=== PATIENT | male | born 1995 | race Caucasian/White ===

== ENCOUNTER 2019-12-12 11:03 | Emergency (ER) | payer BC ==
--- NOTE | 2019-12-12 11:14 | EDM.PDOC ---
ED HPI GENERAL MEDICAL PROBLEM - General Chief Complaint: General Stated Complaint: dizzy Time Seen by Provider: 12/12/19 11:09 Source of Information: Reports: Patient History Limitations: Reports: No Limitations - History of Present Illness INITIAL COMMENTS - FREE TEXT/NARRATIVE: This patient is a 24 year old male that presents to the clinic. I saw him in clinic, then moved him to the ER once I obtained an abnormal EKG. The patient reports that he had a knee scope done in September. He reports that since early November, so about a month having lightheadedness. He reports that he went for check of his knee, told at the orthopedic office his BP was elevated. Patient reports he was told by Ortho to fu with pcp about BP. Patient reports that the lightheadedness has been near constant the entire month. Patient reports that nothing makes it better or worse. Patient reports hat on occasion he will have a headache. Patient reports that today he does not have a headache. Patient reports that he came to the clinic today because he was off work. Patient reports that the lightheadedness is not any worse. He denies having any chest pain or shortness of breath. Patient denies any other symptoms. Patient is ambulatory without difficulty. Denies any unilateral weaknesses, difficulty with speech or balance. Onset Date: 11/13/19 Duration: Other (1 month ago) Severity: Moderate Improves with: Reports: None Worsens with: Reports: None Associated Symptoms: Reports: Headaches. Denies: Confusion, Chest Pain, Cough, cough w sputum, Diaphoresis, Fever/Chills, Loss of Appetite, Malaise, Nausea/ Vomiting, Rash, Seizure, Shortness of Breath, Syncope, Weakness - Related Data Allergies Allergy/AdvReac Type Severity Reaction Status Date / Time morphine Allergy Anaphylactic Verified 12/12/19 11:04 Shock Home Meds: Home Meds . [No Known Home Meds] 06/09/14 [History] Past Medical History - Past Health History Medical/Surgical History: Denies Medical/Surgical History Other Endocrine/Metabolic History: hypoglycemic ED ROS GENERAL - Review of Systems Review Of Systems: See Below Constitutional: Reports: No Symptoms HEENT: Reports: No Symptoms Respiratory: Reports: No Symptoms Cardiovascular: Reports: Blood Pressure Problem, Lightheadedness. Denies: Chest Pain, Dyspnea on Exertion, Edema, Palpitations, Syncope Endocrine: Reports: No Symptoms GI/Abdominal: Reports: No Symptoms. Denies: Abdominal Pain, Nausea, Vomiting : Reports: No Symptoms Musculoskeletal: Reports: No Symptoms. Denies: Neck Pain Skin: Reports: No Symptoms Neurological: Reports: Headache. Denies: Numbness, Seizure, Syncope, Tingling, Tremors, Trouble Speaking, Difficulty Walking, Weakness, Change in Speech, Gait Disturbance Psychiatric: Reports: No Symptoms Hematologic/Lymphatic: Reports: No Symptoms Immunologic: Reports: No Symptoms ED EXAM, GENERAL - Physical Exam Exam: See Below Exam Limited By: No Limitations General Appearance: Alert, WD/WN, No Apparent Distress Eye Exam: Bilateral Eye: EOMI, PERRL Ears: Normal External Exam, Normal Canal, Hearing Grossly Normal, Normal TMs Ear Exam: Bilateral Ear: Auricle Normal, Canal Normal, TM normal Nose: Normal Inspection, Normal Mucosa, No Blood Throat/Mouth: Normal Inspection, Normal Lips, Normal Teeth, Normal Gums, Normal Oropharynx, Normal Voice, No Airway Compromise Head: Atraumatic, Normocephalic Neck: Normal Inspection, Supple, Non-Tender, Full Range of Motion Respiratory/Chest: No Respiratory Distress, Lungs Clear, Normal Breath Sounds, No Accessory Muscle Use, Chest Non-Tender Cardiovascular: Normal Peripheral Pulses, Regular Rate, Rhythm, No Edema, No Gallop, No JVD, No Murmur, No Rub Peripheral Pulses: 2+: Carotid (L), Carotid (R), Radial (L), Radial (R), Posterior Tibial (L), Posterior Tibial (R) GI/Abdominal: Normal Bowel Sounds, Soft, Non-Tender, No Organomegaly, No Abnormal Bruit Back Exam: Normal Inspection, Full Range of Motion Extremities: Normal Inspection, Normal Range of Motion, Non-Tender, No Pedal Edema, Normal Capillary Refill Neurological: Alert, Oriented, CN II-XII Intact, Normal Cognition, Normal Gait, No Motor/Sensory Deficits Psychiatric: Normal Affect, Normal Mood Skin Exam: Warm, Dry, Intact, Normal Color, No Rash Lymphatic: No Adenopathy EKG INTERPRETATION EKG Date: 12/12/19 Time: 10:35 Rate (Beats/Min): 78 ST-T: Elevated Comparison: NA - No Prior EKG EKG Interpretation Comments: T wave inversion Course - Vital Signs Last Recorded V/S: Last Vital Signs Temp 98.2 F 03/07/20 11:15 Pulse 91 12/12/19 11:17 Resp 18 12/12/19 11:15 BP 146/95 H 12/12/19 11:17 Pulse Ox 98 12/12/19 11:15 - Radiology Interpretation Free Text/Narrative:: CXR: No cardiomegaly, no pulmonary edema, no infiltrates. - Re-Assessments/Exams Free Text/Narrative Re-Assessment/Exam: 12/12/19 11:10 I called and spoke to Vianney valenzuela. He reports that the EKG does appear abnormal with T Wave inversion and some ST Elevation in lead 2. He reports I should discuss the patient with cardiology and let them view the EKG. 12/12/19 11:20 I called and spoke to Php Software Engineer Abdiaziz Hughes. He has received the EKG and reviewed. We discussed the patient case. We discussed patient medication history, family medical history, and current symptoms, and EKG, and labs. The patient has NO Chest Pain. No Shortness of breath. No unilateral weaknesses. Dr. Hughes reports to discharge the patient home since he has no chest pain. Reports he needs to see cardiology out patient and have an echo done. I educated this to the patient. He again denies any chest pain. No symptom changes today. I scheduled the patient an echo on Saturday, PCP FU and the phone number to call cardiology. I educated patient when to return to the ER. He understands and verbalizes back the patient is to return to the ER for any worsening of lightheaded. If CP starts or shortness of breath, weaknesses, or any other concerns at all. Departure - Departure Time of Disposition: 11:31 Disposition: Home, Self-Care 01 Condition: Fair Clinical Impression: Lightheadedness, Abnormal electrocardiogram [ECG] [EKG] - Discharge Information *PRESCRIPTION DRUG MONITORING PROGRAM REVIEWED*: Not Applicable *COPY OF PRESCRIPTION DRUG MONITORING REPORT IN PATIENT RACHELLE: Not Applicable Instructions: Electrocardiogram, [id number], Dizziness, [id number] Forms: ED Department Discharge Additional Instructions: Echo SaturdayDecember 14 at 9am: Be here at [facility], [facility] Followup with primary care provider December 2:30PM with Jj Humphries at [facility] Followup with a grocery buyer [phone] Call Saturday for appointment PLEASE RETURN TO THE ER EMERGENTLY IF YOU DEVELOP CHEST PAIN, SHORTNESS OF BREATH, WORSENING OF LIGHTHEADEDNESS, OR ANY OTHER CONCERNS AT ALL Sepsis Event Note - Focused Exam Vital Signs: Vital Signs Temp Pulse Resp BP Pulse Ox 12/12/19 11:17 91 146/95 H 12/12/19 11:15 98.2 F 90 18 154/104 H 98 Date Exam was Performed: 12/12/19 Time Exam was Performed: 12:03 - Assessment/Plan Plan: PLEASE SEE RN NOTE FOR PFSH.
[2019-12-12 11:17] VITALS: BP 146/95; PULSE 91
== END 2019-12-12 11:40 | disposition home or self-care (01) ==
LOC: CC.ED 11:03
DX: R94.31 Abnormal electrocardiogram [ECG] [EKG] (principal); R42 Dizziness and giddiness; Z88.5 Allergy status to narcotic agent
CPT/HCPCS: 99283

== ENCOUNTER 2021-03-02 18:59 | Emergency (ER) | payer BC ==
[2021-03-02 19:02] VITALS: BP 149/93; PULSE 112
--- NOTE | 2021-03-02 19:29 | EDM.PDOC ---
ED HPI GENERAL MEDICAL PROBLEM - General Chief Complaint: General Stated Complaint: "coughing up blood" Time Seen by Provider: 03/02/21 19:19 Source of Information: Reports: Patient, RN History Limitations: Reports: No Limitations - History of Present Illness INITIAL COMMENTS - FREE TEXT/NARRATIVE: States that he has been coughing up blood today. Yesterday and earlier today it was pink in mucus and he states that now it is more bloody. He has sore throat on the right side. He denies any SOB. Coughing occasionally. No fever noted. Onset: Gradual Throat Pain Score (Numeric/FACES): 2 - Related Data Allergies Allergy/AdvReac Type Severity Reaction Status Date / Time morphine Allergy Anaphylactic Verified 03/02/21 19:02 Shock Home Meds: Home Meds PARoxetine HCL [Paroxetine HCl] 30 mg PO DAILY 03/02/21 [History] Temazepam 7.5 mg PO BEDTIME PRN 03/02/21 [History] Past Medical History - Past Health History Medical/Surgical History: Denies Medical/Surgical History HEENT History: Reports: Other (See Below) Other HEENT History: cleft palate/lip repair Other Endocrine/Metabolic History: hypoglycemic - Past Surgical History HEENT Surgical History: Reports: Eye Surgery Musculoskeletal Surgical History: Reports: Arthroscopic Knee, Other (See Below) Other Musculoskeletal Surgeries/Procedures:: ACL repair Social & Family History - Family History Family Medical History: No Pertinent Family History - Tobacco Use Tobacco Use Status *Q: Current Every Day Tobacco User Years of Tobacco use: 1 Packs/Tins Daily: 0 - Caffeine Use Caffeine Use: Reports: Coffee, Soda - Recreational Drug Use Recreational Drug Use: No ED ROS GENERAL - Review of Systems Review Of Systems: See Below Constitutional: Denies: Fever, Chills, Weight Loss HEENT: Reports: Throat Pain Respiratory: Reports: Cough, Hemoptysis. Denies: Shortness of Breath Cardiovascular: Reports: No Symptoms GI/Abdominal: Reports: No Symptoms Musculoskeletal: Reports: No Symptoms Skin: Reports: No Symptoms Neurological: Reports: No Symptoms ED EXAM, GENERAL - Physical Exam Exam: See Below Exam Limited By: No Limitations General Appearance: Alert, WD/WN, No Apparent Distress Ears: Normal External Exam, Normal Canal, Normal TMs Nose: Normal Inspection Throat/Mouth: Normal Inspection, Other (mild redness noted posteriorly) Head: Atraumatic, Normocephalic Neck: Normal Inspection, Full Range of Motion, Lymphadenopathy (R) Respiratory/Chest: No Respiratory Distress, Lungs Clear, Normal Breath Sounds Cardiovascular: Regular Rate, Rhythm GI/Abdominal: Normal Bowel Sounds, Soft, Non-Tender Neurological: Alert, Oriented Skin Exam: Warm, Dry, Intact Course - Vital Signs Last Recorded V/S: Last Vital Signs Temp 98.6 F 03/02/21 18:59 Pulse 112 H 03/02/21 18:59 Resp 18 03/02/21 18:59 BP 149/93 H 03/02/21 18:59 Pulse Ox 97 03/02/21 18:59 - Orders/Labs/Meds Orders: Active Orders 24 hr Category Date Time Status Chest 2V [CR] Stat Exams 03/02/21 19:09 Ordered BASIC METABOLIC PANEL,BMP [CHEM] Stat Lab 03/02/21 19:09 Ordered C-REACTIVE PROTEIN [CHEM] Stat Lab 03/02/21 19:09 Ordered CBC WITH AUTO DIFF [HEME] Stat Lab 03/02/21 19:09 Ordered CORONAVIRUS COVID-19 RAPID [MOLEC] Stat Lab 03/02/21 19:09 Ordered STREP SCRN A RAPID W CULT CONF [RM] Stat Lab 03/02/21 19:09 Ordered - Re-Assessments/Exams Free Text/Narrative Re-Assessment/Exam: 03/02/21 19:48 discussed normal labs and CXR. Sputum that he is coughing up in the ER is clear at this time without any blood. I suspect that he broke a blood vessel in the back of his throat from coughing and it has not stopped. Departure - Departure Time of Disposition: 19:47 Disposition: Home, Self-Care 01 Condition: Good Clinical Impression: Cough - Discharge Information *PRESCRIPTION DRUG MONITORING PROGRAM REVIEWED*: Not Applicable *COPY OF PRESCRIPTION DRUG MONITORING REPORT IN PATIENT RACHELLE: Not Applicable Forms: ED Department Discharge Additional Instructions: push fluids as much as possible recheck in the clinic for any new concerns. Sepsis Event Note (ED) - Evaluation Sepsis Screening Result: No Definite Risk - Focused Exam Vital Signs: Vital Signs Temp Pulse Resp BP Pulse Ox 03/02/21 18:59 98.6 F 112 H 18 149/93 H 97 - Problem List & Annotations (1) Cough SNOMED Code(s): 90121584 Code(s): R05 - COUGH Status: Acute Priority: High Current Visit: Yes - Problem List Review Problem List Initiated/Reviewed/Updated: Yes - My Orders Last 24 Hours: My Active Orders 03/02/21 19:09 Chest 2V [CR] Stat BASIC METABOLIC PANEL,BMP [CHEM] Stat C-REACTIVE PROTEIN [CHEM] Stat CBC WITH AUTO DIFF [HEME] Stat CORONAVIRUS COVID-19 RAPID [MOLEC] Stat STREP SCRN A RAPID W CULT CONF [RM] Stat - Assessment/Plan Last 24 Hours: My Active Orders 03/02/21 19:09 Chest 2V [CR] Stat BASIC METABOLIC PANEL,BMP [CHEM] Stat C-REACTIVE PROTEIN [CHEM] Stat CBC WITH AUTO DIFF [HEME] Stat CORONAVIRUS COVID-19 RAPID [MOLEC] Stat STREP SCRN A RAPID W CULT CONF [RM] Stat
[2021-03-02 19:36] LABS: CHLORIDE,CL 104 mEq/L (98-106); SODIUM,NA 142 mEq/L (136-145)
== END 2021-03-02 19:53 | disposition home or self-care (01) ==
LOC: CC.ED 18:59
DX: R05 Cough (principal); Z88.6 Allergy status to analgesic agent; Z72.0 Tobacco use; Z20.822 Contact with and (suspected) exposure to COVID-19
CPT/HCPCS: 36415; 71046; 80048; 85025; 86140; 87430; 99283-25; U0002

== ENCOUNTER 2021-04-22 21:54 | Emergency (ER) | payer BC ==
[2021-04-22 21:59] VITALS: BP 132/89; PULSE 97
[2021-04-22] MEDS ORDERED: Ketorolac 10 MG Tab ONE (22:42)
--- NOTE | 2021-04-22 22:42 | EDM.PDOC ---
ED HPI GENERAL MEDICAL PROBLEM - General Chief Complaint: General Stated Complaint: R) shoulder pain Time Seen by Provider: 04/22/21 22:30 Source of Information: Reports: Patient History Limitations: Reports: No Limitations - History of Present Illness INITIAL COMMENTS - FREE TEXT/NARRATIVE: Alethea is a 25 year old male who presents to ER with complaints of right shoulder pain. Patient was going down in to the basement and the stairs are loose and broke. He hyperextended his shoulder and arm banged up against the wall. Did not fall on his shoulder but feels he may have grabbed out to keep him from falling. Now has pain to his shoulder with any movement. Onset: Today, Sudden Duration: Hour(s):, Constant Location: Reports: Upper Extremity, Right Quality: Reports: Ache, Throbbing Severity: Severe Improves with: Reports: Rest Worsens with: Reports: Movement Context: Reports: Trauma Associated Symptoms: Reports: No Other Symptoms Right Shoulder Pain Score (Numeric/FACES): 7 - Related Data Allergies Allergy/AdvReac Type Severity Reaction Status Date / Time morphine Allergy Anaphylactic Verified 04/22/21 22:01 Shock Home Meds: Home Meds PARoxetine HCL [Paroxetine HCl] 30 mg PO DAILY 03/02/21 [History] Temazepam 7.5 mg PO BEDTIME PRN 03/02/21 [History] Cyanocobalamin (Vitamin B12) [Vitamin B12] 1 tab PO DAILY 04/22/21 [History] Multivit-Min/Folic/Vit K/Lycop [Men's Multivitamin Tablet] 1 tab PO DAILY 04/22/21 [History] Past Medical History - Past Health History Medical/Surgical History: Denies Medical/Surgical History HEENT History: Reports: Other (See Below) Other HEENT History: cleft palate/lip repair Psychiatric History: Reports: Depression Other Endocrine/Metabolic History: hypoglycemic - Past Surgical History HEENT Surgical History: Reports: Eye Surgery Musculoskeletal Surgical History: Reports: Arthroscopic Knee, Other (See Below) Other Musculoskeletal Surgeries/Procedures:: ACL repair Social & Family History - Family History Family Medical History: No Pertinent Family History - Tobacco Use Tobacco Use Status *Q: Never Tobacco User - Caffeine Use Caffeine Use: Reports: Coffee, Soda ED ROS GENERAL - Review of Systems Review Of Systems: See Below Musculoskeletal: Reports: Shoulder Pain Skin: Reports: No Symptoms Neurological: Reports: No Symptoms ED EXAM, GENERAL - Physical Exam Exam: See Below Exam Limited By: No Limitations General Appearance: Alert, WD/WN, No Apparent Distress Neck: Normal Inspection, Supple, Non-Tender, Full Range of Motion Back Exam: Normal Inspection, Full Range of Motion Extremities: Arm Pain, Limited Range of Motion (has good range of motion except has discomfort. ). No: Joint Swelling Neurological: Alert, Oriented Skin Exam: Warm, Dry Course - Vital Signs Last Recorded V/S: Last Vital Signs Temp 98.6 F 04/22/21 21:55 Pulse 97 04/22/21 21:55 Resp 18 04/22/21 21:55 BP 132/89 04/22/21 21:55 Pulse Ox 95 04/22/21 21:55 - Orders/Labs/Meds Orders: Active Orders 24 hr Category Date Time Status Shoulder Comp Rt [CR] Stat Exams 04/22/21 22:01 Taken Meds: Medications Discontinued Medications Generic Name Dose Route Start Last Admin Trade Name Freq PRN Reason Stop Dose Admin Ketorolac Tromethamine 1 packet 04/22/21 22:39 Take Home: Ketorolac 10 Mg Tab, 4 Tab Pack PO 04/22/21 22:40 ONETIME ONE - Re-Assessments/Exams Free Text/Narrative Re-Assessment/Exam: 04/22/21 Xrays are normal. Departure - Departure Time of Disposition: 22:40 Disposition: Home, Self-Care 01 Condition: Good Clinical Impression: Right shoulder strain - Discharge Information *PRESCRIPTION DRUG MONITORING PROGRAM REVIEWED*: No *COPY OF PRESCRIPTION DRUG MONITORING REPORT IN PATIENT RACHELLE: No Instructions: Muscle Strain, [id number] Referrals: Santy Humphries PA-C [Primary Care Provider] - Forms: ED Department Discharge Additional Instructions: 1. Rest shoulder 2. Ice frequently to shoulder tonight and tomorrow 3. Toradol 10 mg every 6 hours as needed for pain, may use ibuprofen and tylenol for lesser discomfort 4. Follow up in 5-7 days if needed for persisting pain Sepsis Event Note (ED) - Evaluation Sepsis Screening Result: No Definite Risk - Focused Exam Vital Signs: Vital Signs Temp Pulse Resp BP Pulse Ox 04/22/21 21:55 98.6 F 97 18 132/89 95 - My Orders Last 24 Hours: My Active Orders 04/22/21 22:01 Shoulder Comp Rt [CR] Stat - Assessment/Plan Last 24 Hours: My Active Orders 04/22/21 22:01 Shoulder Comp Rt [CR] Stat
[2021-04-22] MEDS: Take Home: Ketorolac 10 MG Tab, 4 Tab Pack PO ONE (23:01)
== END 2021-04-22 22:56 | disposition home or self-care (01) ==
LOC: CC.ED 21:54
DX: S46.911A Strain of unspecified muscle, fascia and tendon at shoulder and upper arm level, right arm, initial encounter (principal); Z88.6 Allergy status to analgesic agent; Z79.899 Other long term (current) drug therapy; X58.XXXA Exposure to other specified factors, initial encounter
CPT/HCPCS: 73030-RT; 99283-25; A9270-GY

== ENCOUNTER 2021-12-02 08:41 | Emergency (ER) | payer SELFPAY ==
[2021-12-02 08:49] VITALS: BP 130/72; PULSE 88
== END 2021-12-02 09:20 | disposition home or self-care (01) ==
LOC: CC.ED 08:41
DX: R31.9 Hematuria, unspecified (principal); Z88.5 Allergy status to narcotic agent; Z72.0 Tobacco use
CPT/HCPCS: 81003; 99283; 99284

== ENCOUNTER 2023-01-06 01:50 | Emergency (ER) | payer MEDICAID ==
[2023-01-06] MEDS: Ketorolac 60 MG/2 ML SDV IM ONE (02:34)
[2023-01-06 02:42] LABS: CHLORIDE,CL 106 mEq/L (98-106); SODIUM,NA 143 mEq/L (136-145)
[2023-01-06 02:43] LABS: ESTIMATED GFR 104 mL/min (>=60)
[2023-01-06 04:03] VITALS: BP 139/88; PULSE 80
== END 2023-01-06 03:04 | disposition home or self-care (01) ==
LOC: CC.ED 01:50
DX: R07.81 Pleurodynia (principal); Z79.899 Other long term (current) drug therapy; Z88.5 Allergy status to narcotic agent; Z72.0 Tobacco use
CPT/HCPCS: 36415; 71046; 80053; 84484; 85025; 86140; 93005; 93010; 96372; 99284; 99285; J1885

== ENCOUNTER 2023-10-11 20:13 | Emergency (ER) | payer BC, MEDICAID ==
[2023-10-11 22:23] VITALS: BP 146/82; PULSE 88
== END 2023-10-11 21:10 | disposition home or self-care (01) ==
LOC: CC.ED 20:13
DX: S83.91XA Sprain of unspecified site of right knee, initial encounter (principal); F17.210 Nicotine dependence, cigarettes, uncomplicated; Z79.899 Other long term (current) drug therapy; Z88.5 Allergy status to narcotic agent; X58.XXXA Exposure to other specified factors, initial encounter
CPT/HCPCS: 73562-RT; 99283